=== PATIENT | male | born 1975 | race Caucasian/White ===

== ENCOUNTER 2021-08-22 02:21 | Emergency (ER) | payer MEDICAID ==
[~2021-08-22] VITALS: Ht 180.3 cm; Wt 90.0 kg
[2021-08-22] MEDS ORDERED: DIPHENHYDRAMINE 50MG/ML VIAL IM ONE (03:00)
[2021-08-22] MEDS ORDERED: HALOPERIDOL LACTATE 5MG/ML VIAL IM ONE (03:00)
[2021-08-22] MEDS ORDERED: LORAZEPAM 2MG/ML CPJ IM ONE (03:00)
[2021-08-22 03:30] LABS: BASOPHILS % 1.2 % (0.0-2.0); EOSINOPHILS % 2.5 % (0.0-5.0); HEMOGLOBIN. 13.5 g/dL (14.0-18.0); MEAN CORPUSCULAR HEMOGLOBIN 29.5 pg (28.0-32.0); MEAN CORPUSCULAR VOLUME 87.5 fL (80.0-94.0); MEAN PLATELET VOLUME 10.5 fl (7.4-10.4); MONOCYTES % 7.7 % (2.0-8.0); NEUTROPHILS % 43.6 % (40.0-76.0); PLATELET 173 x1000/uL (130-400); RED BLOOD CELL COUNT 4.57 mill/uL (4.7-6.1); RED CELL DISTRIBUTION WIDTH 16.5 % (11.6-14.6)
[2021-08-22 03:36] LABS: CHLORIDE 113 mEq/L (98-107)
[2021-08-22 03:43] LABS: ETHANOL BLOOD 183 mg/dL
[2021-08-22 06:05] VITALS: BP 118/73
== END 2021-08-22 13:35 | disposition home or self-care (01) ==
LOC: ER 02:21
DX: R45.851 Suicidal ideations (principal); F10.129 Alcohol abuse with intoxication, unspecified; Y90.6 Blood alcohol level of 120-199 mg/100 ml; F41.9 Anxiety disorder, unspecified; F32.9 Major depressive disorder, single episode, unspecified; Z20.822 Contact with and (suspected) exposure to COVID-19
CPT/HCPCS: 36415; 80053; 80307; 80320; 80329; 85025; 96372; 99284; C9803; J1200; J1630; J2060; U0003; U0005; G0480